=== PATIENT | female | born 1990 | race Caucasian/White ===

== ENCOUNTER 2016-05-18 20:20 | Emergency (ER) | payer SELFPAY ==
[2016-05-18 20:44] VITALS: BP 114/71
[2016-05-18] MEDS ORDERED: KETOROLAC TROMETHAMINE 60 MG/2 ML VIAL IM ONE ×2 (21:33→21:42)
[2016-05-18] MEDS ORDERED: AMOXICILLIN TRIHYDRATE 250 MG CAPSULE PO ONE (21:34)
[2016-05-18] MEDS ORDERED: AMOXICILLIN TRIHYDRATE 250 MG CAPSULE ONE (21:42)
--- NOTE | 2016-05-18 21:50 | ERNOTE ---
ENT HPI Presenting Symptoms: dental pain Time Seen by Provider: 05/18/16 21:28 Source: patient Exam Limitations: no limitations - Immun/Allergies/Home Medications Immunizations: IMMUNIZATION HX Immunizations Up to Date Yes History of Influenza Vaccine No Hx Pneumococcal Vaccination No Allergies/Adverse Reactions: Allergies Allergy/AdvReac Type Severity Reaction Status Date / Time No Known Allergies Allergy Verified 03/13/14 16:34 Home Medications: HOME MEDICATIONS Amoxicillin 875 mg PO BID #20 tablet 05/18/16 [Last Taken Unknown] Nabumetone 750 mg PO BID #30 tab 05/18/16 [Last Taken Unknown] - History of Present Illness Narrative: Pt states she has had dental pain for 3 days on her right lower jaw. She has previously lost her other molars on that side and now the last molar is having problems Severity: Present: moderate ENT Location: Present: dental Prearrival Treatment: Present: over the counter meds Review of Systems - Review of Systems Constitutional: Absent: recent illness EYE: Present: no symptoms reported ENT: Present: See HPI Respiratory: Present: no symptoms reported Cardiology: Present: no symptoms reported Gastrointestinal/Abdominal: Present: no symptoms reported Genitourinary: Present: no symptoms reported Musculoskeletal: Present: no symptoms reported Skin: Absent: rash Neurological: Present: no symptoms reported Endocrine: Present: no symptoms reported Hematologic/Lymphatic: Present: no symptoms reported Psych: Present: no symptoms reported - Patient's Past Medical History Patient History - Medical: No pertinent hx Patient History - Cancer: No Hx of Cancer Patient History - Surgical Procedures: Cholecystectomy, Ear Tubes LMP (females 10-50): 3 weeks - Social History Living Situations: home Smoking Status: Current every day smoker Patient requests Smoking Cessation Consult: No Initiate information on Smoking Cessation: No Alcohol Use: none Drug Use: none Physical Exam - Physical Exam General Appearance: Present: wd/wn, alert, mild distress Ears, Nose, Throat: Present: normal pharynx, other - right lower 3rd molar is lone molar in that row. large central monica and multiple peripheral caries present. gingiva slightly red and swollen surrounding the tooth Neck: Present: normal inspection, nontender. Absent: lymphadenopathy (R), lymphadenopathy (L) Respiratory: Present: no respiratory distress, no accessory muscle use Extremity Exam: Present: normal inspection, normal range of motion Neurological Exam: Present: alert, oriented, no motor/sensory deficits Skin Exam: Present: normal color, warm/dry Lymphatic Exam: Present: no adenopathy ED Progress - Vital Signs Vital Signs: Vital Signs 05/18/16 20:41 Temperature 36.7 C Pulse Rate 79 Respiratory 16 Rate Blood Pressure 114/71 O2 Sat by Pulse 100 Oximetry - Progress/Reassessment Chief Complaint: Dental Problem Departure Clinical Impression: Dental caries extending into pulp - Departure Disposition: Home Follow Up Needed Condition: Fair Instructions: Dental Caries Additional Instructions: See a dentist as soon as possible. May use dental wax on the tooth to reduce exposure to food and other irritants Prescriptions: Amoxicillin 875 mg PO BID #20 tablet Nabumetone 750 mg PO BID #30 tab
== END 2016-05-18 21:53 | disposition home or self-care (01) ==
LOC: ER 20:20
DX: K02.9 Dental caries, unspecified (principal); F17.210 Nicotine dependence, cigarettes, uncomplicated; Z90.49 Acquired absence of other specified parts of digestive tract

== ENCOUNTER 2016-07-02 18:13 | Emergency (ER) | payer SELFPAY ==
[2016-07-02 18:31] VITALS: BP 122/62
--- NOTE | 2016-07-02 19:02 | ERNOTE ---
Abdominal HPI - Narrative Date of Service: 07/02/16 - General Chief Complaint: Constipation Time Seen by Provider: 07/02/16 18:47 Source: patient Exam Limitations: no limitations - Immun/Allergies/Home Medications Immunizatons: IMMUNIZATION HX Immunizations Up to Date No History of Influenza Vaccine No Hx Pneumococcal Vaccination No Allergies/Adverse Reactions: Allergies No Known Allergies Allergy (Verified 07/02/16 18:31) Home Medications: HOME MEDICATIONS Acetaminophen [Pain Reliever] 1,000 mg PO PRN PRN 07/02/16 [Last Taken Unknown] Levonorgestrel [Mirena] 1 each IY 07/02/16 [Last Taken Unknown] - History of Present Illness Narrative: Pt. comes in with c/o constipation for a week. Pt. denies any abdominal pain but states that urinating has become difficult and she has rectal pressure. Pt. denies any blood in her stool and states that she has had 1 small BM in the past 5 days. Pt. denies any nausea or vomiting or prehospital treatment as pt. states she could not afford any OTC meds. Review of Systems - Review of Systems Constitutional: Present: no symptoms reported. Absent: recent illness, fever, chills, weakness, fatigue, malaise EYE: Present: no symptoms reported ENT: Present: no symptoms reported Respiratory: Present: no symptoms reported. Absent: shortness of breath, cough , wheezing Cardiology: Present: no symptoms reported. Absent: chest pain, palpitations, edema Gastrointestinal/Abdominal: Present: constipation. Absent: nausea, vomiting, diarrhea, abdominal pain Genitourinary: Present: no symptoms reported, other - have to strain to urinate Musculoskeletal: Present: no symptoms reported. Absent: back pain, joint pain Skin: Present: no symptoms reported Neurological: Present: no symptoms reported. Absent: headache, dizziness/light- headedness All Other Systems: All systems neg except as marked - Patient's Past Medical History Patient History - Medical: No pertinent hx Patient History - Cardiac/Respiratory: No pertinent hx Patient History - Cancer: No Hx of Cancer Patient History - Surgical Procedures: Cholecystectomy, Ear Tubes Patient History - Other: None - Social History Living Situations: home Abuse History: No History of abuse Psych History: Hx of Depression Smoking Status: Current every day smoker Alcohol Use: none Drug Use: none - Immunizations Immunizations Up to Date: No Hx Pneumococcal Vaccination: No History of Influenza Vaccine: No Physical Exam - Physical Exam General Appearance: Present: wd/wn, alert, no apparent distress Eye Exam: Normal inspection: bilateral, PERRL: bilateral, EOMI: bilateral Ears, Nose, Throat: Present: normal ENT inspection, hearing grossly normal, normal pharynx Neck: Present: normal inspection, nontender Respiratory: Present: no respiratory distress, normal breath sounds, no accessory muscle use, chest nontender, lungs clear Cardiovascular/Chest: Present: regular rate, rhythm, no murmur, normal peripheral pulses Gastrointestinal/Abdominal: Present: normal bowel sounds, nontender, nondistended, soft, no organomegaly Rectal Exam: Present: tenderness - surrounding rectum, fecal impaction. Absent : hemorrhoids Back Exam: Present: normal inspection, normal range of motion, no CVA tenderness , no vertebral tenderness. Absent: CVA tenderness (R), CVA tenderness (L) Extremity Exam: Present: normal inspection, non-tender, no edema, normal range of motion Neurological Exam: Present: alert, oriented, normal mood/affect, no motor/ sensory deficits Skin Exam: Present: normal color, warm/dry. Absent: pallor, skin rash ED Progress - Date and Time Seen: Date and Time: 07/02/16 20:06 Pt. with large results and is feeling better will send home with mag citrate. - Vital Signs Patient's Vital Signs:: I have reviewed the patient's vital signs. Vital Signs: Vital Signs 07/02/16 18:25 Temperature 36.0 C L Pulse Rate 79 Respiratory 18 Rate Blood Pressure 122/62 O2 Sat by Pulse 98 Oximetry - X-Ray X-Ray #1 X-Ray: abdomen Interpretation: Interp. by me X-ray Comments: no free air or obstructive gas pattern but with severe stool retention. - Progress/Reassessment Chief Complaint: Constipation Departure - Departure Clinical Impression: Constipation Qualifiers: Constipation type: unspecified constipation type Qualified Code(s): K59.00 - Constipation, unspecified Disposition: Home self-care Condition: Good Instructions: Constipation, Adult, [id number] Additional Instructions: Please follow up with primary provider if not improved in 2-3 days.
--- OUTSIDE RECORDS SUMMARY | 2016-07-02 19:12 | XMS REPORT | Continuity of Care Document ---
:1990 Author Organization [facility] ([facility]) [place] [address] Phone [phone] Care Team Providers Name Role Phone Dani Patel Primary Care Provider [phone] Source Comments This disclosure is being made pursuant to the Care Everywhere program, applicable federal and state laws, and may not contain all informaitonavailable regarding this patient.[facility] ([facility]) Active Allergies and Adverse Reactions No Known Allergies Current Medications Prescription Sig. Disp. Refills Start Date End Date Status VITS Take by mouth. Active W-CA,FE,FA,<1MG, ( VITAMIN PO) Active Problems Not on file Social History Tobacco Use Types Packs/Day Years Used Date Current Every Day Smoker Comments:half pack a day Alcohol Use Drinks/Week oz/Week Comments No Last Filed Vital Signs Vital Sign Reading Time Taken Blood Pressure 108/61 02/07/2012 4:04 PM CDT Pulse 82 02/07/2012 4:04 PM CDT Temperature - - Respiratory Rate - - Height - - Weight 64.864 kg (143 lb) 02/07/2012 4:04 PM CDT Body Mass Index - - Oxygen Saturation - - Plan of Care Health Maintenance Due Date Last Done Comments Hepatitis B Vaccine (1 of 3 - Primary Series) 1990 HPV Vaccine (1 of 3 - Female/Unknown 3 Dose Series) 2001 Tdap Vaccine 2001 Cervical Cancer Screening 2008 Lipid Disorder Screening 2008 MMR Vaccine 2008 Td Vaccine 2008 Varicella Vaccine (1 of 2 - Adult - No Evidence of 2008 Immunity) Pneumococcal Vaccine (1 of 1 - PPSV23) 2009 Influenza Vaccine: Seasonal (#1) 12/08/2015 Results from Last 3 Months Not on file
[2016-07-02] MEDS ORDERED: MAGNESIUM CITRATE 300 ML BTL PO ONE (20:07)
[2016-07-02] MEDS ORDERED: MAGNESIUM CITRATE 300 ML BTL ONE (20:11)
== END 2016-07-02 20:13 | disposition home or self-care (01) ==
LOC: ER 18:13
DX: K59.00 Constipation, unspecified (principal); Z72.0 Tobacco use

== ENCOUNTER 2016-08-11 19:59 | Emergency (ER) | payer SELFPAY ==
[2016-08-11 20:19] VITALS: BP 110/66
[2016-08-11 20:29] LABS: Urine Bilirubin Negative (NEGATIVE); Urine Blood 25 /ul (NEGATIVE); Urine Ketone Negative (NEGATIVE); Urine Nitrite Negative (NEGATIVE); Urine Protein Negative (NEGATIVE); Urine Specific Gravity 1.015 SP.GR. (1.005-1.010); Urine Urobilinogen Normal (NORMAL); Urine pH 6.5 pH (5.0-7.0)
[2016-08-11 20:41] LABS: Urine Appearance Cloudy; Urine Color Yellow
[2016-08-11 20:42] LABS: Urine Bacteria 1+; Urine Mucus TRACE; Urine WBC >50 /hpf (0-5); Urine Yeast Few - 1+
--- OUTSIDE RECORDS SUMMARY | 2016-08-11 21:14 | XMS REPORT | Continuity of Care Document ---
:1990 Author Organization [facility] ([facility]) [place] [address] Phone [phone] Care Team Providers Name Role Phone Dani Patel Primary Care Provider [phone] Source Comments This disclosure is being made pursuant to the Care Everywhere program, applicable federal and state laws, and may not contain all informaitonavailable regarding this patient.[facility] ([facility]) Active Allergies and Adverse Reactions No Known [...]
--- NOTE | 2016-08-11 21:20 | ERNOTE ---
ER Female HPI Stated Complaint: PAIN IN BOTH LOWER SIDES Time Seen by Provider: 08/11/16 21:02 Source: patient Immunizations: IMMUNIZATION HX Immunizations Up to Date Yes History of Influenza Vaccine Yes Hx Pneumococcal Vaccination No Allergies/Adverse Reactions: Allergies No Known Allergies Allergy (Verified 08/11/16 20:19) Home Medications: HOME MEDICATIONS Acetaminophen [Pain Reliever] 1,000 mg PO PRN PRN 07/02/16 [Last Taken Unknown] Levonorgestrel [Mirena] 1 each IY 07/02/16 [Last Taken Unknown] Nitrofurantoin/Nitrofuran Mac [Macrobid] 100 mg PO Q12H #20 cap 08/11/16 [Last Taken Unknown] - History of Present Illness Narrative: pt here for bilateral flank pain. Denies dysuria and states that she is not . she has had no fevers or chills. Review of Systems - Review of Systems Constitutional: Present: no symptoms reported EYE: Present: no symptoms reported ENT: Present: no symptoms reported Respiratory: Present: no symptoms reported Cardiology: Present: no symptoms reported Gastrointestinal/Abdominal: Present: See HPI Genitourinary: Present: See HPI - Patient's Past Medical History Patient History - Medical: UTI'S Patient History - Cardiac/Respiratory: No pertinent hx Patient History - Cancer: No Hx of Cancer Patient History - Surgical Procedures: Cholecystectomy, Ear Tubes Patient History - Other: None - Social History Living Situations: home Abuse History: No History of abuse Psych History: Hx of Depression Smoking Status: Current every day smoker Patient requests Smoking Cessation Consult: No Initiate information on Smoking Cessation: No Alcohol Use: none Drug Use: none - Immunizations Immunizations Up to Date: Yes Hx Pneumococcal Vaccination: No History of Influenza Vaccine: Yes Physical Exam - Physical Exam General Appearance: Present: wd/wn, alert, no apparent distress Eye Exam: Normal inspection: bilateral, PERRL: bilateral, EOMI: bilateral Ears, Nose, Throat: Present: normal ENT inspection, normal pharynx Neck: Present: normal inspection Respiratory: Present: no respiratory distress, normal breath sounds, no accessory muscle use, chest nontender, lungs clear Cardiovascular/Chest: Present: regular rate, rhythm, no murmur, normal peripheral pulses Gastrointestinal/Abdominal: Present: normal bowel sounds, nontender, nondistended, soft Back Exam: Present: normal inspection, normal range of motion, no CVA tenderness ED Progress - Results and Orders Patient's Lab Results:: I have reviewed the patient's lab results. - Vital Signs Patient's Vital Signs:: I have reviewed the patient's vital signs. Vital Signs: Vital Signs 08/11/16 20:15 Temperature 37 C Pulse Rate 66 Respiratory 20 Rate Blood Pressure 110/66 O2 Sat by Pulse 100 Oximetry - Progress/Reassessment Chief Complaint: Genitourinary Problem Plan - Plan Plan: pt is slightly tender upon palpation of the flanks bilaterally, no rebound tenderness upon abd exam and she has no CVA tenderness. but her UA has bacteria and Leukocyte estrase. Will treat for UTI/ pyelo. She refused blood draw Departure Clinical Impression: UTI (urinary tract infection) Qualifiers: Urinary tract infection type: site unspecified Hematuria presence: with hematuria Qualified Code(s): N39.0 - Urinary tract infection, site not specified ; R31.9 - Hematuria, unspecified - Departure Disposition: Home self-care Condition: Good Instructions: Acute Urinary Retention, Female, [id number], Urinary Tract Infection, Adult, [id number] Prescriptions: Nitrofurantoin/Nitrofuran Mac [Macrobid] 100 mg PO Q12H #20 cap
[2016-08-11] MEDS ORDERED: NITROFURANTOIN/NITROFURAN MAC 100 MG CAPSULE ONE (21:22)
[2016-08-11] MEDS ORDERED: NITROFURANTOIN/NITROFURAN MAC 100 MG CAPSULE PO ONE (21:22)
== END 2016-08-11 21:37 | disposition home or self-care (01) ==
LOC: ER 19:59
DX: N39.0 Urinary tract infection, site not specified (principal); R31.9 Hematuria, unspecified; F17.210 Nicotine dependence, cigarettes, uncomplicated; Z87.440 Personal history of urinary (tract) infections

== ENCOUNTER 2016-11-26 17:07 | Emergency (ER) | payer OTHER ==
--- NOTE | 2016-11-26 18:04 | ERNOTE ---
Lower Extremity HPI - Narrative Date of Service: 11/26/16 - General Lower Extremities Pain: leg: left Time Seen by Provider: 11/26/16 17:23 Source: patient, RN notes reviewed Exam Limitations: no limitations - Immun/Allergies/Home Medications Immunizations: IMMUNIZATION HX Immunizations Up to Date Yes History of Influenza Vaccine No Hx Pneumococcal Vaccination No Allergies/Adverse Reactions: Allergies Allergy/AdvReac Type Severity Reaction Status Date / Time No Known Allergies Allergy Verified 11/26/16 17:19 Home Medications: HOME MEDICATIONS Levonorgestrel [Mirena] 1 each IY DAILY 07/02/16 [Last Taken Unknown] - Pain Score Pain Score #1 Pain Score: 7 - History of Present Illness Narrative: Flakita is a 26 year old female who presents to the ED by private vehicle for pain in her left calf that started last evening. She denies any injury. She has taken Tylenol for pain without improvement. She has no prior history of DVT but she is a smoker. Date (Duration): 11/25/16 Method of Injury: Reports: no apparent injury Prior Treament: Denies: recently seen, similar symptoms before Review of Systems - Review of Systems Constitutional: Absent: fever, chills EYE: Present: no symptoms reported ENT: Present: no symptoms reported Respiratory: Absent: shortness of breath, cough Cardiology: Present: claudication. Absent: chest pain, edema Gastrointestinal/Abdominal: Absent: nausea, abdominal pain Genitourinary: Present: no symptoms reported Musculoskeletal: Present: muscle pain. Absent: joint pain, joint swelling Skin: Absent: rash, lesions, lumps, change in color Neurological: Absent: weakness, numbness, tingling Endocrine: Present: no symptoms reported Hematologic/Lymphatic: Absent: easy bruising, easy bleeding Psych: Present: no symptoms reported - Patient's Past Medical History Patient History - Medical: UTI'S Patient History - Cardiac/Respiratory: No pertinent hx Patient History - Cancer: No Hx of Cancer Patient History - Surgical Procedures: Cholecystectomy, Ear Tubes Patient History - Other: None LMP (females 10-50): unknown - has mirena - Social History Living Situations: home Abuse History: No History of abuse Psych History: Hx of Depression Smoking Status: Current every day smoker Have you smoked in the past 12 months: Yes Alcohol Use: none Drug Use: none - Immunizations Immunizations Up to Date: Yes Hx Pneumococcal Vaccination: No History of Influenza Vaccine: No Physical Exam - Physical Exam General Appearance: Present: wd/wn, alert, no apparent distress Respiratory: Present: no respiratory distress, normal breath sounds, no accessory muscle use, lungs clear Cardiovascular/Chest: Present: regular rate, rhythm, no murmur, normal peripheral pulses Peripheral Pulses: N=norm/S=strong/W=weak/B=bound/A=absent: Dorsalis-pedis (R): Strong, Dorsalis-pedis (L): Strong Extremity Exam: Present: normal range of motion, no edema, calf tenderness - Left, other - positive Homans sign on left. Absent: joint redness, joint swelling Neurological Exam: Present: alert, oriented, normal mood/affect, no motor/ sensory deficits Skin Exam: Present: normal color, warm/dry ED Progress - Results and Orders Patient's Lab Results:: I have reviewed the patient's lab results. - Vital Signs Patient's Vital Signs:: I have reviewed the patient's vital signs. Vital Signs: Vital Signs 11/26/16 17:14 Temperature 36.5 C Pulse Rate 79 Respiratory 16 Rate Blood Pressure 104/68 O2 Sat by Pulse 99 Oximetry - Progress/Reassessment Chief Complaint: Lower Extremity Pain/ Injury Departure Clinical Impression: Muscle strain - Departure Disposition: Home self-care Condition: Good Instructions: Muscle Pain, Adult Additional Instructions: Tylenol and/or ibuprofen for pain Ice to sore areas Wear ALMA wrap as needed Follow up with your doctor if symptoms persist or worsen Referrals: Magda Lee FNP [Primary Care Provider] -
[2016-11-26 19:16] VITALS: BP 102/66
== END 2016-11-26 19:17 | disposition home or self-care (01) ==
LOC: ER 17:07
DX: S86.812A Strain of other muscle(s) and tendon(s) at lower leg level, left leg, initial encounter (principal); Z87.440 Personal history of urinary (tract) infections; F17.200 Nicotine dependence, unspecified, uncomplicated

== ENCOUNTER 2020-09-23 13:01 | Inpatient (IN) ==
[2020-09-23] MEDS ORDERED: PENICILLIN G POTASSIUM 5 MILLIONUNT in DEXTROSE 5 % IN WATER 100 ML IV ONE ×2 (13:22)
[2020-09-23] MEDS ORDERED: RINGER'S SOLUTION,LACTATED 1,000 ML IV ONE (13:22)
[2020-09-23] MEDS ORDERED: ONDANSETRON 4 MG TAB.RAPDIS PO PRN (13:22)
[2020-09-23 14:03] LABS: Hematocrit 37.7 % (37.0-47.0); Hemoglobin 12.7 gm/dL (12.5-16.0); Mean Cell Volume 92.6 fl (78-100); Mean Corpuscular Hemoglobin 31.2 pg (27-31); Mean Corpuscular Hgb Conc 33.7 g/dl (32-36); Mean Platelet Volume 11.9 fl (8-12.5); Neutrophil # 14.6 K/mm3 (1.3-6.0); Neutrophil % 78.9 % (42-75.0); Platelet Count 196 K/mm3 (150-450); Red Blood Count 4.07 M/mm3 (4.2-5.4); Red Cell Distribution Width 11.9 % (11.5-14.0); White Blood Count 18.5 K/mm3 (4.0-10.5)
[2020-09-23] MEDS ORDERED: ONDANSETRON HCL/PF 2 MG/ML VIAL IV PRN (14:13)
[2020-09-23] MEDS ORDERED: BUPIVACAINE HCL/0.9 % NACL/PF 250 ML EP PRN (14:13)
[2020-09-23] MEDS ORDERED: NALOXONE HCL 1 MG/1 ML SYRG IV PRN (14:13)
[2020-09-23] MEDS ORDERED: fentaNYL CITRATE/PF 50 MCG/ML AMPUL IT SCH (14:15)
--- NOTE | 2020-09-23 14:58 | ANES ---
Anesthesia Pre Procedure Eval HOME MEDICATIONS albuterol sulfate 90 mcg/actuation aerosol inhaler 2 inh IH Q6H PRN 03/26/20 [Last Taken Unknown] vitamin no.102-iron 90 mg-folate 1 mg-dha 200 mg capsule 1 cap PO DAILY #30 cap 03/26/20 [Last Taken 09/22/20] Docusate Sodium [Colace] 100 mg PO DAILY 09/23/20 [Last Taken 09/22/20] Allergies/Adverse Reactions: Allergies Allergy/AdvReac Type Severity Reaction Status Date / Time poison tulio extract Allergy Unknown Verified 03/26/20 11:17 - Planned Procedure Planned Procedure: labor epidural Medication List Reviewed:: Yes Allergies Verified: Yes Medical History (Last Reviewed 09/23/20 @ 14:57 by Bert Padilla CRNA) Tobacco abuse (Acute) 10 cig/d Bronchitis Onset Date: Unknown Asthma Onset Date: Unknown As a child. No hospitalizations. No current rx. Body piercing Onset Date: Unknown Eczema Onset Date: Unknown Migraine Onset Date: Unknown Tattoos Onset Date: Unknown Anxiety Onset Date: Unknown Past tx w/medication Depression Onset Date: Unknown Tx w/medication in the past. Elective Onset Date: Unknown IUGR (intrauterine growth restriction) Onset Date: ~01/2012 Pancreatitis Onset Date: 06/22/09 Abnormal Pap smear of cervix Onset Date: ~2009 2009 & 2011 Surgical History (Last Reviewed 09/23/20 @ 14:57 by Bert Padilla CRNA) History of cholecystectomy Onset Date: ~2009 [place] History of colposcopy Onset Date: 06/17/11 benign History of placement of ear tubes Onset Date: Unknown As a child-x4 Family History (Last Reviewed 09/23/20 @ 14:57 by Bert Padilla CRNA) Mother Hx of cholecystectomy Grandmother Heart valve problem COPD (chronic obstructive pulmonary disease) Parkinsons disease Diabetes Father Arthritis Sister Asthma Grandfather Alcoholic Aunt Cancer Breast cancer, bone cancer Aunt Diabetes - Family Anesthesia History Family History:: no untoward family reactions to anesthesia - Airway/Neck/Teeth Within Normal Limits:: Yes Teeth Condition: intact Neck Exam: full range of motion Mallampatti Score: 2 Thyromental (T-M) distance: > 6 cm Mandibulo Hyoid distance: > 3 cm - Respiratory Respiratory Physical: lungs clear Smoking Status: Current every day smoker Discussed smoking cessation including day of surgery: Yes Sleep Apnea currently treated: No Sleep Apnea by current assessment: No - Cardiovascular Tolerate Activity: Good Heart Sounds: S1 & S2, Regular - Gastrointestinal NPO since: 0900 - Anesthesia Assessment and Plan ASA Class: PS, II, E Anesthesia Type Plan: Spinal Planned difficult intubation/equipment available: No
--- NOTE | 2020-09-23 14:58 | ANES ---
Post Anesthesia Discharge - Transfer of Care Transfer of Care handoff given to nurse: Yes - Anesthesia Post Op Note Anesthesia Post Op Note: Care transferred to OB RN
--- NOTE | 2020-09-23 14:59 | ANES ---
Post Anesthesia Assessment - Vital Signs Airway Patency: Normal - Mental Status Level Of Consciousness: Awake - Pain Level Pain Score: 2 - N/V Assessment Nausea/Vomiting Presence: None Dehydration:: No
--- NOTE | 2020-09-23 15:00 | ANES ---
Anesthesia Procedure Note Procedure Note: ANESTHESIA PROCEDURE NOTE Date of Procedure: 09/23/2020 Time of procedure: 1450. Performed by: Nj Padilla CRNA [place] Operator: None. Preprocedure diagnosis: Active labor. Post procedure diagnosis: Same. Procedure: Insertion of labor epidural. Indications: The patient is a 30-year-old multigravida female in active labor requesting labor epidural for pain management. Findings: See below. Details of the procedure: The patient was placed in a sitting position. Back was prepped with DuraPrep. Patient was then draped in a sterile fashion. Lidocaine 1% was infiltrated to the skin and subcutaneous tissues at the level of the L3 4 interspace. The epidural space was identified using a 18-gauge Tuohy needle with [id number] technique. 20 mcg fentanyl was given intrathecally using a 27 ga. spinal needle. Epidural catheter was inserted without difficulty. Negative test dose was elicited using 5 mL of 1.5% preservative-free lidocaine plus epinephrine 1 200,000. The epidural catheter was then taped and secured in place. EBL: Minimal. Fluids: N/A. Specimen: N/A. Post procedure condition: The patient tolerated the procedure well. No complications were noted. Thank you for this consultation. [place] CRNA
[2020-09-23 15:16] LABS: Urine Bilirubin Negative (NEGATIVE); Urine Blood Negative /ul (NEGATIVE); Urine Ketone Negative (NEGATIVE); Urine Nitrite Negative (NEGATIVE); Urine Protein Negative (NEGATIVE); Urine Urobilinogen Normal (NORMAL); Urine pH 6.5 pH (5.0-7.0)
[2020-09-23 15:27] LABS: Urine Appearance Clear (CLEAR); Urine Bacteria None Seen; Urine Color Yellow; Urine RBC None Seen /hpf (0-5); Urine WBC None Seen /hpf (0-5)
[2020-09-23 15:49] LABS: Cocaine Ur Negative (NEGATIVE); Urine Barbiturate Negative (NEGATIVE); Urine Benzodiazepines Negative (NEGATIVE); Urine Opiates Negative (NEGATIVE); Urine PCP Negative (NEGATIVE); Urine THC Negative (NEGATIVE)
--- NOTE | 2020-09-23 16:45 | HP ---
Chief Complaint - Chief Complaint Date of Service: 09/23/20 Time of Service: 16:30 Chief Complaint: contractions History of Present Illness: 30 yo at 38w6d presents to [facility] ER complaining of painful contractions. This complicated by asthma, anxiety/depression, insufficient PNC, smoker, meth abuse, and h/o IUGR. Rh positive Rubella nonimmune GBS unknown Medical History (Last Reviewed 09/23/20 @ 16:44 by Gus Reyes DO) Tobacco abuse (Acute) 10 cig/d Bronchitis Onset Date: Unknown Asthma Onset Date: Unknown As a child. No hospitalizations. No current rx. Body piercing Onset Date: Unknown Eczema Onset Date: Unknown Migraine Onset Date: Unknown Tattoos Onset Date: Unknown Anxiety Onset Date: Unknown Past tx w/medication Depression Onset Date: Unknown Tx w/medication in the past. Elective Onset Date: Unknown IUGR (intrauterine growth restriction) Onset Date: ~01/2012 Pancreatitis Onset Date: 06/22/09 Abnormal Pap smear of cervix Onset Date: ~2009 2009 & 2011 Surgical History: Surgical History (Last Reviewed 09/23/20 @ 16:44 by Gus Reyes DO) History of cholecystectomy Onset Date: ~2009 [place] History of colposcopy Onset Date: 06/17/11 benign History of placement of ear tubes Onset Date: Unknown As a child-x4 Family History: Family History (Last Reviewed 09/23/20 @ 16:44 by Gus Reyes DO) Mother Hx of cholecystectomy Grandmother Heart valve problem COPD (chronic obstructive pulmonary disease) Parkinsons disease Diabetes Father Arthritis Sister Asthma Grandfather Alcoholic Aunt Cancer Breast cancer, bone cancer Aunt Diabetes Social History: (Last Reviewed 09/23/20 @ 16:44 by Gus Reyes DO) Social History: adopted: No residential: No Marital status: lives independently: Yes household members: significant other number of children: 3 current occupational status: unemployed current occupational exposures/hazards: No Highest level of school completed/degree received: 9th grade Sexually Active: Yes Service: No Tobacco: Smoking Status: Current every day smoker tobacco type: cigarettes Smoking cigarettes per day: 10 Alcohol: alcohol intake: former Substance Use: substance use type: former substance user Dietary Habits: caffeine: Yes caffeine comment: 2/day Exercise: Physical activity type: walking frequency: daily [place]/Gnosticist: agree to transfusion: Yes Review Of Systems (GEN) - Review of Systems Generalized/Overall Review: Present: No Symptoms Reported EENTM: Present: No Symptoms Reported Respiratory: Present: No Symptoms Reported Cardiac: Present: No Symptoms Reported Abdominal: Present: Abdominal Pain - contractions Musculoskeletal: Present: Other - vaginal presssure Neurological: Present: No Symptoms Reported Skin: Present: No Symptoms Reported Endocrine: Present: No Symptoms Reported Immunizations: IMMUNIZATION HX Immunizations Up to Date Yes History of Influenza Vaccine No Hx Pneumococcal Vaccination No Allergies/Adverse Reactions: Allergies Allergy/AdvReac Type Severity Reaction Status Date / Time poison tulio extract Allergy Unknown Verified 03/26/20 11:17 Home Medications: HOME MEDICATIONS albuterol sulfate 90 mcg/actuation aerosol inhaler 2 inh IH Q6H PRN 03/26/20 [Last Taken Unknown] vitamin no.102-iron 90 mg-folate 1 mg-dha 200 mg capsule 1 cap PO DAILY #30 cap 03/26/20 [Last Taken 09/22/20] Docusate Sodium [Colace] 100 mg PO DAILY 09/23/20 [Last Taken 09/22/20] Exam - Exam Vital Signs: Vital Signs - Last Taken Temp 36.5 C 09/23/20 14:57 Pulse 112 H 09/23/20 14:57 Resp 18 09/23/20 14:57 BP 119/62 09/23/20 14:57 Pulse Ox 94 09/23/20 14:57 Constitutional: Present: Oriented x3, Somnolent ENT Exam: Present: hearing grossly normal Neck: Present: non-tender, supple. Absent: thyromegaly Breasts: Present: Exam deferred Respiratory: Present: lungs clear, no respiratory distress Cardiovascular/Chest: Present: normal peripheral pulses, no edema, no murmur, tachycardia Abdomen: Present: soft, nontender, no rebound tenderness, other - Gravid /Rectal: Present: Other - 5/75/-3 Extremity: Present: non-tender, no pedal edema, no calf tenderness Skin Exam: Present: normal color, warm/dry, no cyanosis Lymphatic: Present: no adenopathy Neurologic: Present: normal mood/affect Appearance: Present: disheveled Eye contact: Present: cooperative - somewhat Thoughts: Present: normal mood /affect Diagnostic Studies: Abnormal Lab Results 09/23/20 09/23/20 Range/Units 13:55 15:00 WBC 18.5 H (4.0-10.5) K/mm3 RBC 4.07 L (4.2-5.4) M/mm3 MCH 31.2 H (27-31) pg Immature Gran # (Auto) 0.07 H (0.000-0.0310) K/mm3 Neutrophils % 78.9 H (42-75.0) % Lymphocytes % 11.9 L (20-51) % Neutrophils # 14.6 H (1.3-6.0) K/mm3 Monocytes # 1.3 H (0.0-1.0) k/mm3 Urine Amphetamine Positive H (NEGATIVE) Laboratory Results WBC 18.5 K/mm3 (4.0-10.5) H 09/23/20 13:55 RBC 4.07 M/mm3 (4.2-5.4) L 09/23/20 13:55 Hgb 12.7 gm/dL (12.5-16.0) 09/23/20 13:55 Hct 37.7 % (37.0-47.0) 09/23/20 13:55 MCV 92.6 fl (78-100) 09/23/20 13:55 MCH 31.2 pg (27-31) H 09/23/20 13:55 MCHC 33.7 g/dl (32-36) 09/23/20 13:55 RDW 11.9 % (11.5-14.0) 09/23/20 13:55 Plt Count 196 K/mm3 (150-450) 09/23/20 13:55 MPV 11.9 fl (8-12.5) 09/23/20 13:55 Immature Gran % (Auto) 0.40 % (0.001-0.429) 09/23/20 13:55 Immature Gran # (Auto) 0.07 K/mm3 (0.000-0.0310) H 09/23/20 13:55 Neutrophils % 78.9 % (42-75.0) H 09/23/20 13:55 Lymphocytes % 11.9 % (20-51) L 09/23/20 13:55 Monocytes % 6.9 % (0.0-9) 09/23/20 13:55 Eosinophils % 1.5 % (0.0-3.0) 09/23/20 13:55 Basophils % 0.4 % (0.0-1.0) 09/23/20 13:55 Nucleated RBC % 0.0 k/mm3 (0-1) 09/23/20 13:55 Neutrophils # 14.6 K/mm3 (1.3-6.0) H 09/23/20 13:55 Lymphocytes # 2.21 k/mm3 (1.5-3.5) 09/23/20 13:55 Monocytes # 1.3 k/mm3 (0.0-1.0) H 09/23/20 13:55 Eosinophils # 0.3 k/mm3 (0.0-0.7) 09/23/20 13:55 Absolute Basophils 0.1 k/mm3 (0.0-0.1) 09/23/20 13:55 Urine Color Yellow 09/23/20 15:00 Urine Appearance Clear (CLEAR) 09/23/20 15:00 Urine pH 6.5 pH (5.0-7.0) 09/23/20 15:00 Ur Specific [place] 1.020 SP.GR. (1.005-1.010) 09/23/20 15:00 Urine Protein Negative mg/dL (NEGATIVE) 09/23/20 15:00 Urine Glucose (UA) Negative mg/dL (NEGATIVE) 09/23/20 15:00 Urine Ketones Negative mg/dL (NEGATIVE) 09/23/20 15:00 Urine Blood Negative /ul (NEGATIVE) 09/23/20 15:00 Urine Nitrate Negative (NEGATIVE) 09/23/20 15:00 Urine Bilirubin Negative mg/dl (NEGATIVE) 09/23/20 15:00 Urine Urobilinogen Normal EU/dl (NORMAL) 09/23/20 15:00 Ur Leukocyte Esterase Negative /ul (NEGATIVE) 09/23/20 15:00 Urine RBC None seen /hpf (0-5) 09/23/20 15:00 Urine WBC None seen /hpf (0-5) 09/23/20 15:00 Ur Epithelial Cells None seen /hpf (0-5) 09/23/20 15:00 Urine Bacteria None seen (NONE) 09/23/20 15:00 Urine Opiates Screen Negative (NEGATIVE) 09/23/20 15:00 Barbiturate Screen Negative (NEGATIVE) 09/23/20 15:00 Ur Phencyclidine Scrn Negative (NEGATIVE) 09/23/20 15:00 Urine Amphetamine Positive (NEGATIVE) H 09/23/20 15:00 U Benzodiazepines Scrn Negative (NEGATIVE) 09/23/20 15:00 Urine Cocaine Screen Negative (NEGATIVE) 09/23/20 15:00 Urine Marijuana (THC) Negative (NEGATIVE) 09/23/20 15:00 Blood Type A Positive 09/23/20 13:55 Antibody Screen Negative 09/23/20 13:55 Assessment/Plan - Assessment/Plan (1) Labor established Assessment: Admit to L&D for management of labor. Epidural and pitocin PRN. IV PCN for unknown GBS status. DHS consult. Peds consult for baby on meth. Problem: Acute (2) Insufficient care Problem: Acute (3) Methamphetamine abuse Problem: Chronic (4) Tobacco abuse Problem: Chronic (5) Asthma Problem: Acute (6) Anxiety and depression Problem: Acute (7) Not immune to rubella Problem: Acute
--- NOTE | 2020-09-23 17:01 | PN ---
Progess Note - Interim Date: 09/23/20 Time: 16:30 Narrative: 09/23/20 16:59 Patient comfortable with epidural Vital signs stable. FHT: 130 baseline, reassuring contractions q 2-3 min Cervix: 5/80/-3, AROM-clear Impression: Intrauterine at 38 6/7 weeks in labor Plan: Continue present plan
[2020-09-23] MEDS ORDERED: PENICILLIN G POTASSIUM 2.5 MILLIONUNT in DEXTROSE 5 % IN WATER 100 ML IV SCH ×2 (18:15)
[2020-09-23] MEDS ORDERED: OXYTOCIN/0.9 % SODIUM CHLORIDE 30 UNITS/500 ML BAG IV ONE ×2 (18:18→19:55)
[2020-09-23] MEDS ORDERED: HYDROCORTISONE 30 APPL TUBE TP PRN (19:55)
[2020-09-23] MEDS ORDERED: SENNOSIDES 8.6 MG TABLET PO PRN (19:55)
[2020-09-23] MEDS ORDERED: oxyCODONE HCL/ACETAMINOPHEN 1 TAB TABLET PO PRN (19:55)
[2020-09-23] MEDS ORDERED: BENZOCAINE/MENTHOL 81 SPRAY CAN TP PRN (19:55)
[2020-09-23] MEDS ORDERED: BISACODYL 10 MG SUPP.RECT RC PRN (19:55)
[2020-09-23] MEDS ORDERED: ALBUTEROL SULFATE 200 PUFF INHALER IH PRN (19:55)
[2020-09-23] MEDS ORDERED: ACETAMINOPHEN 325 MG TABLET PO PRN (19:55)
[2020-09-23] MEDS ORDERED: GLYCERIN/WITCH HAZEL LEAF 40 APPL BOX TP PRN (19:55)
--- NOTE | 2020-09-23 19:58 | OR ---
Operative Report - Dictated Report Narrative: Spontaneous vaginal delivery of viable female at 1937 on 09/23/2020 with Apgars 8 and 9, weighing 2554 g. Cord clamping delayed approximately 1 minute Placenta delivered complete, intact, with three vessel cord Estimated blood loss: Less than 50 ml Anesthesia: Epidural Lacerations: None
--- NOTE | 2020-09-23 20:00 | PN ---
Progess Note - Interim Date: 09/23/20 Time: 20:00 History for MU History for MU Definition: * The number of deliveries resulting in a live the patient experienced prior to current hospitalization * The previous delivery of live twins or any live multiple gestation is considered one live event. *If primagravida or nulliparous is documented select zero for the number of previous live births. Live Events: Live Events: 4
[2020-09-23] MEDS: DOCUSATE SODIUM 100 MG CAPSULE PO SCH (20:32)
[2020-09-23] MEDS: IBUPROFEN 800 MG TABLET PO PRN (20:32)
[2020-09-24] MEDS: DOCUSATE SODIUM 100 MG CAPSULE PO SCH ×2 (08:57→22:15)
[2020-09-24] MEDS ORDERED: PRENATAL VITS96/IRON FUM/FOLIC 1 TAB TABLET PO SCH (09:00)
[2020-09-24] MEDS ORDERED: DOCUSATE SODIUM 100 MG CAPSULE PO SCH (09:00)
[2020-09-24] MEDS ORDERED: FOLATE PO SCH (09:00)
[2020-09-24] MEDS ORDERED: IRON PO SCH (09:00)
[2020-09-24] MEDS ORDERED: PNV PO SCH (09:00)
[2020-09-24] MEDS ORDERED: DHA PO SCH (09:00)
[2020-09-24] MEDS ORDERED: [UNRECOGNIZED DRUG - OTHER] PO SCH (09:00)
--- NOTE | 2020-09-24 12:53 | PN ---
Subjective - Date and Time Seen Date: 09/24/20 Time: 12:50 Objective - Vitals Vitals: Last Vital Signs Temp 36.5 C 09/24/20 12:03 Pulse 96 09/24/20 12:03 Resp 18 09/24/20 12:03 BP 146/81 H 09/24/20 12:03 Pulse Ox 96 09/24/20 12:03 Patient denies complaints. Patient has been sleeping since her epidural, waking up only for few minutes to deliver her baby. She is still sleeping. Lochia wnl abdomen - soft, nontender Uterus -firm, at umbilicus - 1 No calf tenderness Impression: day #1 - s/p spontaneous vaginal delivery. (Entire exam done while patient sleeping.) Meth abuse. Tobacco abuse. No care. Plan: Continue routine care. DHS consulted. Monitor closely for development of severe features of preeclampsia/gestational hypertension. - Abnormal Lab Findings Abnormal Lab Findings: Abnormal Lab Results 09/23/20 09/23/20 Range/Units 13:55 15:00 WBC 18.5 H (4.0-10.5) K/mm3 RBC 4.07 L (4.2-5.4) M/mm3 MCH 31.2 H (27-31) pg Immature Gran # (Auto) 0.07 H (0.000-0.0310) K/mm3 Neutrophils % 78.9 H (42-75.0) % Lymphocytes % 11.9 L (20-51) % Neutrophils # 14.6 H (1.3-6.0) K/mm3 Monocytes # 1.3 H (0.0-1.0) k/mm3 Urine Amphetamine Positive H (NEGATIVE) Cauti Physician Documentation - Urinary Catheter Management Urethral (Aguero) Date of Insertion: 09/23/20 Time of Insertion: 15:01 Date of Removal: 09/23/20 Time of Removal: 19:30 Assessment/Plan - Problems/Diagnosis (1) Labor established Problem: Acute (2) Insufficient care Problem: Acute (3) Methamphetamine abuse Problem: Chronic (4) Tobacco abuse Problem: Chronic (5) Asthma Problem: Acute (6) Anxiety and depression Problem: Acute (7) Not immune to rubella Problem: Acute
--- NOTE | 2020-09-25 02:53 | DS ---
OB Discharge Summary (1) Labor established Status: Resolved (2) Insufficient care Status: Acute Qualifiers: Trimester: unspecified trimester Qualified Code(s): O09.30 - Supervision of with insufficient care, unspecified trimester (3) Methamphetamine abuse Status: Chronic (4) Tobacco abuse Status: Chronic (5) Asthma Status: Chronic Qualifiers: Asthma severity: mild Asthma persistence: intermittent Asthma complication type: uncomplicated Qualified Code(s): J45.20 - Mild intermittent asthma, uncomplicated (6) Anxiety and depression Status: Chronic (7) Not immune to rubella Status: Chronic Delivery Date: 09/23/20 Delivery Time: 19:37 :: 6 Para:: 5 Gestational weeks:: 38 Gestational days:: 6 Intrapartum Procedures: Spontaneous Vaginal Delivery, Anesthesia - Epidural /OP Complications: No Complications Discharge Diagnosis: Term -Delivered, Rubella Nonimmune - Discharge Information Date of Discharge: 09/25/20 Discharge Location: Home Disposition: Home self-care Condition: Stable Referrals: Gus Reyes DO [Primary Care Provider] - Activity on Discharge:: Activity as tolerated, Pelvic Rest Discharge Diet: General/regular food Additional Patient Instructions (free text): Flakita will follow up with Dr. Reyes on Continue to take your vitamins one daily. Drink plenty of fluids. Rest If you have any concerns or questions please call [facility] [phone], [facility] [phone] or [facility] [phone]. Prescriptions (Any new or edited meds): Ibuprofen [Motrin] 200 - 800 mg PO Q6H PRN #100 tab PRN Reason: Pain Complete Home Medications List: Complete Home Medication List: albuterol sulfate 90 mcg/actuation aerosol inhaler 2 inh IH Q6H PRN 03/26/20 vitamin no.102-iron 90 mg-folate 1 mg-dha 200 mg capsule 1 cap PO DAILY #30 cap 03/26/20 Docusate Sodium [Colace] 100 mg PO DAILY 09/23/20 Ibuprofen [Motrin] 200 - 800 mg PO Q6H PRN #100 tab 09/25/20 - Plan Discharge to:: Home Follow up in office in:: 3-4 weeks - [place] Information Weight (Grams): 2,554 Infant Sex: Female Score 1 min: 8 Score 5 min: 9 Complications: Other - respiratory distress, jaundice Other Complications: 1-visit care, mom+ amphetamines. respiratory distress, jaundice
[2020-09-25] MEDS: IBUPROFEN 800 MG TABLET PO PRN (03:46)
[2020-09-25 04:02] LABS: Cocaine Ur Negative (NEGATIVE); Urine Barbiturate Negative (NEGATIVE); Urine Benzodiazepines Negative (NEGATIVE); Urine Opiates Negative (NEGATIVE); Urine PCP Negative (NEGATIVE); Urine THC Negative (NEGATIVE)
--- NOTE | 2020-09-25 08:39 | PN ---
Subjective - Date and Time Seen Date: 09/25/20 Time: 08:36 Objective - Vitals Vitals: Last Vital Signs Temp 36.7 C 09/25/20 07:43 Pulse 68 09/25/20 07:43 Resp 18 09/25/20 07:43 BP 97/52 09/25/20 07:43 Pulse Ox 96 09/25/20 07:43 Patient still sleeping, difficult to awaken. Very little verbal communication. Last night patient stated she was going to go out to get a snack and it did not return for over 2 hours. Security and I went looking through the halls and around the outside of the hospital in parking lot the could not find her. When she returned a urine drug screen was done which still showed positive amphetamines-this still could be residual from previous 2 days of use. Lochia wnl abdomen - soft, nontender Uterus -firm, at umbilicus - 2 No calf tenderness Impression: day #2 - s/p spontaneous vaginal delivery. Baby may be transferred today to [facility] for continued respiratory distress and met withdrawal. If baby remains here, will have mother board for baby. Plan: Routine discharge instructions. Patient not open to hearing/excepting discharge instructions. DHS involved. - Abnormal Lab Findings Abnormal Lab Findings: Abnormal Lab Results 09/25/20 Range/Units 03:40 Urine Amphetamine Positive H (NEGATIVE) Cauti Physician Documentation - Urinary Catheter Management Urethral (Aguero) Date of Insertion: 09/23/20 Time of Insertion: 15:01 Date of Removal: 09/23/20 Time of Removal: 19:30 Assessment/Plan - Problems/Diagnosis (1) Labor established Problem: Resolved (2) Insufficient care Problem: Acute Qualifiers: Trimester: unspecified trimester Qualified Code(s): O09.30 - Supervision of with insufficient care, unspecified trimester (3) Methamphetamine abuse Problem: Chronic (4) Tobacco abuse Problem: Chronic (5) Asthma Problem: Chronic Qualifiers: Asthma severity: mild Asthma persistence: intermittent Asthma complication type: uncomplicated Qualified Code(s): J45.20 - Mild intermittent asthma, uncomplicated (6) Anxiety and depression Problem: Chronic (7) Not immune to rubella Problem: Chronic
[2020-09-25] MEDS ORDERED: FERROUS SULFATE 325 MG TABLET PO SCH (09:00)
[2020-09-25 12:43] LABS: Hep B Surface Antigen Confirm DNR
--- NOTE | 2020-09-25 13:21 | PN ---
Progess Note - Interim Date: 09/25/20 Time: 12:30 Narrative: 09/25/20 13:19 Patient still sleeping soundly. Difficult to awaken. Offered her control prior to her discharge home-she declined. DHS in to see patient earlier this morning. Mother will not be going home with baby. Infant still in nursery on oxygen.
[2020-09-25 13:53] LABS: Hepatitis B Surface Antigen NON-REACTIVE (NON-REACTIVE)
[2020-09-25 15:15] VITALS: BP 115/62
== END 2020-09-25 15:45 | disposition home or self-care (01) | DRG 807 ==
LOC: OBCLINIC 13:01 → OB 13:16
PROVIDERS: ADMIT Obstetrics & Gynecology; ATTEND Obstetrics & Gynecology
DX: F41.8 Other specified anxiety disorders; O99.344 Other mental disorders complicating childbirth; J45.909 Unspecified asthma, uncomplicated; Z37.0 Single live birth; Z3A.38 38 weeks gestation of pregnancy; O99.334 Smoking (tobacco) complicating childbirth; O99.324 Drug use complicating childbirth; F17.210 Nicotine dependence, cigarettes, uncomplicated; F15.90 Other stimulant use, unspecified, uncomplicated